=== PATIENT | female | born 1990 | race Two or more races ===

== ENCOUNTER 2024-09-27 09:38 | Emergency (ER) | payer OTHER ==
[~2024-09-27] VITALS: Ht 165.1 cm; Wt 86.4 kg
[2024-09-27 09:42] VITALS: BP 141/74; PULSE 94; RESP 18; TEMP 98.3; O2SAT 99
[2024-09-27] MEDS: OxyCODONE HCL/ACETAMINOPHEN 5-325 MG TABLET PO ONE (10:35)
[2024-09-27] MEDS: LIDOCAINE 1% 10 ML VIAL SQ ONE (10:35)
[2024-09-27] MEDS: CEPHALEXIN MONOHYDRATE 500 MG CAPSULE PO ONE (11:58)
[2024-09-27] MEDS ORDERED: CEPH-558 PO (12:01)
[2024-09-27] MEDS ORDERED: IBUP-1492 PO (12:01)
== END 2024-09-27 12:13 | disposition home or self-care (01) ==
LOC: EMS 09:38
DX: S61.211A Laceration without foreign body of left index finger without damage to nail, initial encounter (principal); W29.3XXA Contact with powered garden and outdoor hand tools and machinery, initial encounter; Y93.89 Activity, other specified; Y92.89 Other specified places as the place of occurrence of the external cause; Y99.8 Other external cause status
CPT/HCPCS: 99283; 73130; 12001; J3490